=== PATIENT | male | born 1965 ===

== ENCOUNTER → 2017-11-22 | Emergency (ER) | payer OTHER ==
[~2017-11-22] VITALS: Ht 165.1 cm; Wt 81.6 kg
[~2017-11-22] MED LIST: AMOXICILLIN500 MG PO; ELOCON45 G1 TP
== END | disposition left against medical advice (07) ==
LOC: ER 08:20
DX: Z53.20 Procedure and treatment not carried out because of patient's decision for unspecified reasons (principal)

== ENCOUNTER 2017-11-27 17:40 | Emergency (ER) | payer OTHER ==
[~2017-11-27] VITALS: Ht 165.1 cm; Wt 74.8 kg
== END 2017-11-27 21:36 | disposition home or self-care (01) ==
LOC: ER 17:40
DX: K08.89 Other specified disorders of teeth and supporting structures (principal)

== ENCOUNTER 2017-12-05 19:47 | Emergency (ER) | payer OTHER ==
[~2017-12-05] VITALS: Ht 177.8 cm; Wt 82.6 kg
== END 2017-12-05 20:54 | disposition home or self-care (01) ==
LOC: ER 19:47
DX: S80.872A Other superficial bite, left lower leg, initial encounter (principal); S80.871A Other superficial bite, right lower leg, initial encounter; L08.9 Local infection of the skin and subcutaneous tissue, unspecified; W57.XXXA Bitten or stung by nonvenomous insect and other nonvenomous arthropods, initial encounter

== ENCOUNTER → 2017-12-06 | Emergency (ER) | payer OTHER | END | disposition left against medical advice (07) | LOC: ER 18:39 | DX: Z53.20 Procedure and treatment not carried out because of patient's decision for unspecified reasons (principal) ==

== ENCOUNTER → 2017-12-07 | Emergency (ER) | payer OTHER | END | disposition left against medical advice (07) | LOC: ER 18:10 | DX: Z53.20 Procedure and treatment not carried out because of patient's decision for unspecified reasons (principal) ==

== ENCOUNTER 2017-12-08 17:41 | Emergency (ER) | payer OTHER ==
[~2017-12-08] VITALS: Ht 170.2 cm; Wt 74.8 kg
== END 2017-12-08 19:32 | disposition home or self-care (01) ==
LOC: ER 17:41
DX: N50.89 Other specified disorders of the male genital organs (principal)

== ENCOUNTER 2017-12-27 18:23 | Emergency (ER) | payer OTHER ==
[~2017-12-27] VITALS: Ht 170.2 cm; Wt 77.1 kg
== END 2017-12-27 19:59 | disposition home or self-care (01) ==
LOC: ER 18:23
DX: F91.8 Other conduct disorders (principal)

== ENCOUNTER 2019-12-14 11:00 | Emergency (ER) | payer OTHER ==
[~2019-12-14] VITALS: Ht 172.7 cm; Wt 90.7 kg
[2019-12-15] MEDS ORDERED: DUI500 PO (07:11)
== END 2019-12-14 12:40 | disposition home or self-care (01) ==
LOC: ER 11:00
DX: B35.8 Other dermatophytoses (principal)

== ENCOUNTER 2019-12-15 05:31 | Emergency (ER) | payer OTHER ==
[~2019-12-15] VITALS: Ht 170.2 cm; Wt 86.2 kg
[2019-12-15] MEDS ORDERED: DUI500 PO (07:11)
== END 2019-12-15 07:47 | disposition home or self-care (01) ==
LOC: ER 05:31
DX: S90.812A Abrasion, left foot, initial encounter (principal); S90.811A Abrasion, right foot, initial encounter; S70.312A Abrasion, left thigh, initial encounter; W45.8XXA Other foreign body or object entering through skin, initial encounter; Y93.01 Activity, walking, marching and hiking; Y92.89 Other specified places as the place of occurrence of the external cause; Y99.8 Other external cause status

== ENCOUNTER 2021-07-19 06:49 | Emergency (ER) | payer OTHER ==
[~2021-07-19] VITALS: Ht 172.7 cm; Wt 77.1 kg
[~2021-07-19 06:49] MED LIST changes: +DUI500 PO
[2021-07-19] MEDS ORDERED: ANTIFUNGAL113 GM TOP (08:46)
== END 2021-07-19 09:25 | disposition home or self-care (01) ==
LOC: ER 06:49
DX: S30.812A Abrasion of penis, initial encounter (principal); S70.319A Abrasion, unspecified thigh, initial encounter; B36.9 Superficial mycosis, unspecified; X58.XXXA Exposure to other specified factors, initial encounter; Y93.9 Activity, unspecified; Y92.9 Unspecified place or not applicable; Y99.9 Unspecified external cause status